=== PATIENT | male | born 1930 | race Caucasian/White ===

== ENCOUNTER 2016-04-26 09:15 | Inpatient (IN) | payer MEDICARE, MEDICAID ==
[2016-04-26] VITALS (27 sets, daily range): BP systolic 124–172; BP diastolic 31–116
[~2016-04-26] VITALS: Ht 165.1 cm; Wt 90.7 kg
[~2016-04-26 09:15] MED LIST: AMLO10TA80 PO; ASPI-1035 PO; FURO-151 PO; HYDR-523 PO; INSU3INS6 SUBCUT; LISI-604 PO; TAMS0.4C31 PO; VALS1TAB34 PO
[2016-04-26] MEDS ORDERED: INSASP SQ (12:09)
[2016-04-26] MEDS ORDERED: ATEN-42 PO (12:09)
[2016-04-26] MEDS ORDERED: LACT10SO6 PO (12:09)
[2016-04-26] MEDS ORDERED: HYDR12.529 PO (12:09)
[2016-04-26] MEDS ORDERED: LEVVL SQ (12:09)
[2016-04-26] MEDS ORDERED: FERR-63 PO (12:09)
[2016-04-26] MEDS ORDERED: CLOP75TA33 PO (12:09)
[2016-04-26] MEDS ORDERED: LOSA100T14 PO (12:09)
[2016-04-26] MEDS ORDERED: ESOM40CA PO (12:09)
[2016-04-26] MEDS ORDERED: HYDR-3933 PO (12:09)
[2016-04-26] MEDS ORDERED: ATOR40TA70 PO (12:09)
[2016-04-26] MEDS ORDERED: DOCU-150 PO (12:09)
[2016-04-26] MEDS ORDERED: IODIXANOL 320MG/ML 100 ML BOTTLE IV ONE (12:15)
[2016-04-26] MEDS ORDERED: LIDOCAINE HCL 1% 20ML VIAL (Pyxis) INJ ONE (12:16)
[2016-04-26] MEDS ORDERED: MIDAZOLAM HCL 2 MG/2 ML VIAL ONE (12:39)
[2016-04-26] MEDS ORDERED: FENTANYL CITRATE/PF 50MCG/ML 2ML VIAL ONE (12:40)
[2016-04-26] MEDS ORDERED: HEPARIN SODIUM 1,000 UNIT/1ML VIAL IV ONE ×2 (12:48→13:05)
[2016-04-26] MEDS ORDERED: HYDROMORPHONE HCL/PF 2MG/ML (OR) ONE (12:58)
[2016-04-26] MEDS ORDERED: IOVERSOL 240MG/ML 100ML BOTTLE IV ONE (13:06)
[2016-04-26] MEDS ORDERED: HYDRALAZINE 20MG/ML VIAL ONE (13:19)
[2016-04-26] MEDS ORDERED: MORPHINE SULFATE 2 MG/ML CPJ (NOT FOR IM USE) IV PRN (14:45)
[2016-04-26] MEDS ORDERED: ATROPINE SULFATE 1MG/10ML SYR IV PRN (14:45)
[2016-04-26] MEDS ORDERED: SODIUM CHLORIDE 0.45% 1,000 ML IV ONE (14:45)
[2016-04-26] MEDS ORDERED: ACETAMINOPHEN 325MG TABLET PO PRN (14:45)
[2016-04-26] MEDS ORDERED: ONDANSETRON HCL 4MG/2ML VIAL IV PRN (14:45)
[2016-04-26] MEDS ORDERED: CLOPIDOGREL 75MG TABLET ONE (14:48)
[2016-04-26] MEDS ORDERED: DEXTROSE 50% WATER 50ML SYRINGE IV PRN (15:00)
[2016-04-26] MEDS ORDERED: CLOPIDOGREL 75MG TABLET PO NR (16:00)
[2016-04-26] MEDS: LOSARTAN POTASSIUM 50 MG TABLET PO SCH (16:13)
[2016-04-26] MEDS: AMLODIPINE 5MG TABLET PO SCH (16:13)
[2016-04-26] MEDS: BLOOD SUGAR DIAGNOSTIC STRIP TEST SCH ×2 (16:41→21:04)
[2016-04-26] MEDS: INSULIN LISPRO 100 UNITS/ML SUBCUT SCH ×2 (16:59→21:10)
[2016-04-26] MEDS ORDERED: PNEUMOCOCCAL 23-VAL P-SAC VAC 0.5 ML IM ONE (19:30)
[2016-04-26] MEDS ORDERED: MAGNESIUM HYDROXIDE 400MG/5ML 30ML UDC PO PRN (22:00)
[2016-04-26] MEDS ORDERED: ZOLPIDEM TARTRATE 5MG TABLET PO PRN (22:00)
[2016-04-26] MEDS ORDERED: HYDROCODONE/ACETAMINOPHEN 5/325MG TABLET PO PRN (22:00)
[2016-04-26] MEDS ORDERED: MAGNESIUM/ALUMINUM HYDROXIDE/SIMETHICONE 30ML UDC PO PRN (22:00)
[2016-04-26] MEDS: INSULIN DETEMIR UD 100 UNITS/ML SYR SUBCUT SCH (23:00)
[2016-04-27] VITALS (10 sets, daily range): BP systolic 106–156; BP diastolic 57–74
[2016-04-27] MEDS: INSULIN DETEMIR UD 100 UNITS/ML SYR SUBCUT SCH (01:18)
[2016-04-27] MEDS: BLOOD SUGAR DIAGNOSTIC STRIP TEST SCH ×2 (06:32→11:27)
[2016-04-27 07:31] LABS: BASOPHILS % 0.2 % (0.0-2.0); HEMOGLOBIN. 10.8 g/dL (14.0-18.0); MEAN CORPUSCULAR HEMOGLOBIN 29.7 pg (28.0-32.0); MEAN CORPUSCULAR HGB CONC 32.9 g/dL (31.0-37.0); MEAN CORPUSCULAR VOLUME 90.3 fL (80.0-94.0); MEAN PLATELET VOLUME 8.7 fl (7.4-10.4); MONOCYTES % 5.2 % (2.0-8.0); NEUTROPHILS % 76.6 % (40.0-76.0); PLATELET 306 x1000/uL (130-400); RED BLOOD CELL COUNT 3.66 mill/uL (4.7-6.1); RED CELL DISTRIBUTION WIDTH 13.7 % (11.6-14.6)
[2016-04-27 07:42] LABS: ANION GAP 12; CALCIUM 8.3 mg/dL (8.5-10.1); CARBON DIOXIDE 25 mEq/L (21-32); CHLORIDE 105 mEq/L (98-107); INDEX HEMOLYSI 1 (1-3); INDEX ICTERIC 1 (1-4); INDEX LIPEMIC 1 (1-3); UREA NITROGEN BLOOD 28 mg/dL (7-21); eGFR > 60 mL/min (>60)
[2016-04-27] MEDS: FERROUS SULFATE 325MG TABLET PO SCH ×2 (08:48→11:32)
[2016-04-27] MEDS: AMLODIPINE 5MG TABLET PO SCH (08:49)
[2016-04-27] MEDS: LOSARTAN POTASSIUM 50 MG TABLET PO SCH (08:49)
[2016-04-27] MEDS: INSULIN LISPRO 100 UNITS/ML SUBCUT SCH ×2 (08:54→11:34)
[2016-04-27] MEDS ORDERED: CLOPIDOGREL 75MG TABLET PO SCH (09:00)
[2016-04-27] MEDS ORDERED: ASPIRIN 325MG TABLET PO SCH (09:00)
[2016-04-27] MEDS ORDERED: ATENOLOL 25MG TABLET PO SCH (09:00)
[2016-04-27] MEDS ORDERED: TAMSULOSIN HCL 0.4MG SR CAPSULE PO SCH (09:00)
== END 2016-04-27 14:40 | disposition home health service (06) | DRG 253 ==
LOC: CCL 09:15 → 3WST 09:16
PROVIDERS: ADMIT Specialist; ATTEND Specialist
PROC: 047K3EZ Dilation of Right Femoral Artery with Two Intraluminal Devices, Percutaneous Approach (ICD-10-PCS; principal; 2016-04-26)
PROC: B41F1ZZ Fluoroscopy of Right Lower Extremity Arteries using Low Osmolar Contrast (ICD-10-PCS; 2016-04-26)
PROC: 047K34Z Dilation of Right Femoral Artery with Drug-eluting Intraluminal Device, Percutaneous Approach (ICD-10-PCS; 2016-04-26)
DX: E11.52 Type 2 diabetes mellitus with diabetic peripheral angiopathy with gangrene (principal); E11.621 Type 2 diabetes mellitus with foot ulcer; E78.00 Pure hypercholesterolemia, unspecified; I10 Essential (primary) hypertension; L97.513 Non-pressure chronic ulcer of other part of right foot with necrosis of muscle; I25.10 Atherosclerotic heart disease of native coronary artery without angina pectoris; Z83.3 Family history of diabetes mellitus; Z85.51 Personal history of malignant neoplasm of bladder; Z86.73 Personal history of transient ischemic attack (TIA), and cerebral infarction without residual deficits; Z89.421 Acquired absence of other right toe(s); I25.2 Old myocardial infarction
CPT/HCPCS: 36415; 37226; 75710; 80048; 82962; 85025; 85347; 85730; 90732; C1725; C1726; C1769; C1874; C1887; C1893; C1894; J0360; J0461; J1170; J1644; J1815; J2250; J2270; J3010; J3490; Q9967

== ENCOUNTER 2016-05-06 15:29 | Inpatient (IN) | payer MEDICARE, MEDICAID ==
[~2016-05-06] VITALS: Ht 165.1 cm; Wt 64.9 kg
[~2016-05-06 15:29] MED LIST changes: -AMLO10TA80 PO; +ATEN-42 PO; +ATOR40TA70 PO; +CLOP75TA33 PO; +DOCU-150 PO; +ESOM40CA PO; +FERR-63 PO; -FURO-151 PO; +HYDR-3933 PO; -HYDR-523 PO; +HYDR12.529 PO; +INSASP SQ; -INSU3INS6 SUBCUT; +LACT10SO6 PO; +LEVVL SQ; -LISI-604 PO; +LOSA100T14 PO; -TAMS0.4C31 PO; -VALS1TAB34 PO
[2016-05-06 16:42] LABS: CHLORIDE 107 mEq/L (98-107); INDEX HEMOLYSI 4 (1-3); INDEX ICTERIC 1 (1-4); INDEX LIPEMIC 1 (1-3)
[2016-05-06 16:44] LABS: INR 1.1; PARTIAL THROMBOPLASTIN TIME 28.7 sec (24.0-34.0); PROTHROMBIN TIME 11.4 sec
[2016-05-06 16:46] LABS: ALBUMIN 2.3 g/dL (3.4-5.0); ANION GAP 13; CALCIUM 8.3 mg/dL (8.5-10.1); CARBON DIOXIDE 23 mEq/L (21-32); UREA NITROGEN BLOOD 33 mg/dL (7-21)
[2016-05-06 16:50] LABS: ALANINE AMINOTRANSFERASE 14 IU/L (13-61); BASOPHILS % 0.5 % (0.0-2.0); EOSINOPHILS % 1.9 % (0.0-5.0); HEMATOCRIT. 32.6 % (42.0-52.0); HEMOGLOBIN. 10.2 g/dL (14.0-18.0); LYMPHOCYTES % 22.9 % (20.0-50.0); MEAN CORPUSCULAR HEMOGLOBIN 29.9 pg (28.0-32.0); MEAN CORPUSCULAR HGB CONC 31.3 g/dL (31.0-37.0); MEAN CORPUSCULAR VOLUME 95.3 fL (80.0-94.0); MONOCYTES % 5.5 % (2.0-8.0); NEUTROPHILS % 69.2 % (40.0-76.0); PLATELET 358 x1000/uL (130-400); RED BLOOD CELL COUNT 3.42 mill/uL (4.7-6.1); RED CELL DISTRIBUTION WIDTH 14.7 % (11.6-14.6); WHITE BLOOD COUNT 8.5 x1000/uL (4.5-11.0); eGFR > 60 mL/min (>60)
[2016-05-06] MEDS ORDERED: IPRATROPIUM/ALBUTEROL 0.5-3(2.5)MG/3ML NEB INH PRN (20:30)
[2016-05-06] MEDS ORDERED: ONDANSETRON HCL 4MG/2ML VIAL IV PRN (20:30)
[2016-05-06] MEDS ORDERED: GUAIFENESIN 200MG/10ML SUGAR FREE UDC PO PRN (20:30)
[2016-05-06] MEDS ORDERED: DIPHENHYDRAMINE 50MG/ML VIAL IV PRN (20:30)
[2016-05-06] MEDS ORDERED: MAGNESIUM/ALUMINUM HYDROXIDE/SIMETHICONE 30ML UDC PO PRN (20:30)
[2016-05-06] MEDS ORDERED: ACETAMINOPHEN 325MG TABLET PO PRN (20:30)
[2016-05-06] MEDS ORDERED: CLONIDINE 0.1MG TABLET PO PRN (20:30)
[2016-05-06] MEDS ORDERED: ZOLPIDEM TARTRATE 5MG TABLET PO PRN (20:45)
[2016-05-06] MEDS ORDERED: DEXTROSE 50% WATER 50ML SYRINGE IV PRN (20:45)
[2016-05-06] MEDS ORDERED: MAGNESIUM HYDROXIDE 400MG/5ML 30ML UDC PO PRN (20:45)
[2016-05-06] MEDS ORDERED: CLONIDINE 0.2MG TABLET PO ONE (22:00)
[2016-05-06] MEDS ORDERED: SODIUM POLYSTYRENE SULFONATE 15 G/60 ML BOT PO NR (22:52)
[2016-05-06 23:00] VITALS: BP 186/68
[2016-05-06] MEDS: LOSARTAN POTASSIUM 50 MG TABLET PO SCH (23:20)
[2016-05-06] MEDS: BLOOD SUGAR DIAGNOSTIC STRIP TEST SCH (23:20)
[2016-05-06] MEDS: DEXT 5%/0.45% NACL 1000ML 1,000 ML IV SCH (23:21)
[2016-05-06] MEDS ORDERED: INSULIN DETEMIR UD 100 UNITS/ML SYR SUBCUT SCH (23:30)
[2016-05-06] MEDS: INSULIN LISPRO 100 UNITS/ML SUBCUT SCH (23:37)
[2016-05-07] VITALS (7 sets, daily range): BP systolic 115–186; BP diastolic 60–81
[2016-05-07] MEDS ORDERED: CLONIDINE 0.1MG TABLET PO PRN (00:30)
[2016-05-07] MEDS ORDERED: SODIUM CHLORIDE 0.45% 1,000 ML IV ONE (06:00)
[2016-05-07] MEDS: BLOOD SUGAR DIAGNOSTIC STRIP TEST SCH ×4 (06:51→20:32)
[2016-05-07 07:15] LABS: ANION GAP 10; CALCIUM 8.1 mg/dL (8.5-10.1); CARBON DIOXIDE 29 mEq/L (21-32); CHLORIDE 108 mEq/L (98-107); INDEX HEMOLYSI 1 (1-3); INDEX ICTERIC 1 (1-4); INDEX LIPEMIC 1 (1-3); UREA NITROGEN BLOOD 31 mg/dL (7-21); eGFR > 60 mL/min (>60)
[2016-05-07] MEDS: INSULIN LISPRO 100 UNITS/ML SUBCUT SCH ×4 (08:10→20:37)
[2016-05-07] MEDS ORDERED: THROMBIN (BOVINE) 5000 UNITS/VIAL TOP NR (08:30)
[2016-05-07] MEDS: AMLODIPINE 5MG TABLET PO SCH ×2 (12:02→20:27)
[2016-05-07] MEDS: TAMSULOSIN HCL 0.4MG SR CAPSULE PO SCH (12:02)
[2016-05-07] MEDS: LOSARTAN POTASSIUM 50 MG TABLET PO SCH (12:03)
[2016-05-07] MEDS: DOCUSATE SODIUM 100MG CAPSULE PO SCH ×2 (12:03→17:25)
[2016-05-07] MEDS: FERROUS SULFATE 325MG TABLET PO SCH ×3 (12:03→17:25)
[2016-05-07] MEDS: OMEPRAZOLE 20MG CAPSULE EXTENDED RELEASE PO SCH (12:03)
[2016-05-07] MEDS: ATENOLOL 25MG TABLET PO SCH (12:08)
[2016-05-07] MEDS: HYDROCODONE/ACETAMINOPHEN 10/325MG TABLET PO PRN (14:40)
[2016-05-07] MEDS: DEXT 5%/0.45% NACL 1000ML 1,000 ML IV SCH (20:27)
[2016-05-07] MEDS ORDERED: INSULIN DETEMIR UD 100 UNITS/ML SYR SUBCUT SCH (23:09)
[2016-05-08] VITALS: BP 122/56
[2016-05-08] MEDS: HYDROCODONE/ACETAMINOPHEN 10/325MG TABLET PO PRN (00:05)
[2016-05-08] MEDS: LOSARTAN POTASSIUM 50 MG TABLET PO SCH ×2 (00:06→08:54)
[2016-05-08 04:00] VITALS: BP 131/58
[2016-05-08 06:01] LABS: BASOPHILS % 0.6 % (0.0-2.0); EOSINOPHILS % 2.5 % (0.0-5.0); HEMATOCRIT. 27.4 % (42.0-52.0); LYMPHOCYTES % 27.8 % (20.0-50.0); MEAN CORPUSCULAR HEMOGLOBIN 30.2 pg (28.0-32.0); MEAN CORPUSCULAR HGB CONC 32.9 g/dL (31.0-37.0); MEAN CORPUSCULAR VOLUME 91.8 fL (80.0-94.0); MEAN PLATELET VOLUME 8.2 fl (7.4-10.4); MONOCYTES % 5.8 % (2.0-8.0); NEUTROPHILS % 63.3 % (40.0-76.0); PLATELET 331 x1000/uL (130-400); RED BLOOD CELL COUNT 2.98 mill/uL (4.7-6.1); RED CELL DISTRIBUTION WIDTH 14.4 % (11.6-14.6); WHITE BLOOD COUNT 8.1 x1000/uL (4.5-11.0)
[2016-05-08] MEDS: BLOOD SUGAR DIAGNOSTIC STRIP TEST SCH ×3 (06:08→17:10)
[2016-05-08 06:57] LABS: ANION GAP 10; CALCIUM 7.8 mg/dL (8.5-10.1); CARBON DIOXIDE 27 mEq/L (21-32); CHLORIDE 106 mEq/L (98-107); INDEX HEMOLYSI 1 (1-3); INDEX ICTERIC 1 (1-4); INDEX LIPEMIC 1 (1-3); UREA NITROGEN BLOOD 30 mg/dL (7-21); eGFR > 60 mL/min (>60)
[2016-05-08 08:00] VITALS: BP 124/76
[2016-05-08] MEDS: DOCUSATE SODIUM 100MG CAPSULE PO SCH ×2 (08:53→16:42)
[2016-05-08] MEDS: ATENOLOL 25MG TABLET PO SCH (08:53)
[2016-05-08] MEDS: AMLODIPINE 5MG TABLET PO SCH (08:54)
[2016-05-08] MEDS: TAMSULOSIN HCL 0.4MG SR CAPSULE PO SCH (08:54)
[2016-05-08] MEDS: OMEPRAZOLE 20MG CAPSULE EXTENDED RELEASE PO SCH (08:54)
[2016-05-08] MEDS: FERROUS SULFATE 325MG TABLET PO SCH ×3 (08:54→16:43)
[2016-05-08] MEDS: INSULIN LISPRO 100 UNITS/ML SUBCUT SCH ×2 (09:03→13:55)
[2016-05-08 12:11] VITALS: BP 131/62
[2016-05-08] MEDS ORDERED: POTASSIUM CHLORIDE 20MEQ TABLET SR PO SCH (13:15)
[2016-05-08] MEDS ORDERED: ASPIRIN 81MG EC TABLET PO NR (15:30)
[2016-05-08] MEDS ORDERED: CLOPIDOGREL 75MG TABLET PO NR (15:30)
[2016-05-08 16:00] VITALS: BP 148/67
[2016-05-08 16:21] VITALS: BP 131/62
[2016-05-09] MEDS ORDERED: FAMOTIDINE 20MG TABLET PO SCH (09:00)
== END 2016-05-08 17:50 | disposition home or self-care (01) | DRG 299 ==
LOC: ER 15:36 → 7WST 18:34
PROVIDERS: ADMIT Internal Medicine; ATTEND Internal Medicine
PROC: 3E053GC Introduction of Other Therapeutic Substance into Peripheral Artery, Percutaneous Approach (ICD-10-PCS; principal; 2016-05-07)
DX: I72.4 Aneurysm of artery of lower extremity (principal); E43 Unspecified severe protein-calorie malnutrition; J90 Pleural effusion, not elsewhere classified; S30.1XXA Contusion of abdominal wall, initial encounter; D64.9 Anemia, unspecified; E11.40 Type 2 diabetes mellitus with diabetic neuropathy, unspecified; E78.00 Pure hypercholesterolemia, unspecified; E87.5 Hyperkalemia; I10 Essential (primary) hypertension; I25.10 Atherosclerotic heart disease of native coronary artery without angina pectoris; E11.51 Type 2 diabetes mellitus with diabetic peripheral angiopathy without gangrene; X58.XXXA Exposure to other specified factors, initial encounter; E78.5 Hyperlipidemia, unspecified; I25.2 Old myocardial infarction; Z82.49 Family history of ischemic heart disease and other diseases of the circulatory system; Z83.3 Family history of diabetes mellitus; Z85.51 Personal history of malignant neoplasm of bladder; Z86.73 Personal history of transient ischemic attack (TIA), and cerebral infarction without residual deficits; Z95.5 Presence of coronary angioplasty implant and graft; Z79.82 Long term (current) use of aspirin; Z95.1 Presence of aortocoronary bypass graft; Z89.411 Acquired absence of right great toe; Z68.23 Body mass index [BMI] 23.0-23.9, adult; Y93.89 Activity, other specified; Y92.89 Other specified places as the place of occurrence of the external cause; Y99.8 Other external cause status
CPT/HCPCS: 36415; 71010; 76857; 76942; 80048; 80053; 82962; 85025; 85610; 85730; 93005; 99285; A6261; J1815; J3490

== ENCOUNTER 2017-02-13 13:34 | Inpatient (IN) | payer MEDICARE, MEDICAID ==
[~2017-02-13] VITALS: Ht 165.1 cm; Wt 79.4 kg
[~2017-02-13 13:34] MED LIST changes: -ASPI-1035 PO; +ASPI-1159 PO
[2017-02-13 15:15] LABS: INR 1.2; PROTHROMBIN TIME 12.2 sec (9.4-11.6)
[2017-02-13 15:17] LABS: BASOPHILS % 0.1 % (0.0-2.0); HEMATOCRIT. 35.5 % (42.0-52.0); HEMOGLOBIN. 11.5 g/dL (14.0-18.0); LYMPHOCYTES % 8.2 % (20.0-50.0); MEAN CORPUSCULAR HEMOGLOBIN 30.7 pg (28.0-32.0); MEAN CORPUSCULAR VOLUME 94.8 fL (80.0-94.0); MEAN PLATELET VOLUME 9.3 fl (7.4-10.4); MONOCYTES % 6.2 % (2.0-8.0); NEUTROPHILS % 85.5 % (40.0-76.0); PLATELET 278 x1000/uL (130-400); RED BLOOD CELL COUNT 3.75 mill/uL (4.7-6.1); RED CELL DISTRIBUTION WIDTH 13.2 % (11.6-14.6)
[2017-02-13 15:19] LABS: CARBON DIOXIDE 26 mEq/L (21-32); CHLORIDE 99 mEq/L (98-107)
[2017-02-13 15:20] LABS: CLARITY URINE CLOUDY (CLEAR); COLOR URINE YELLOW (YELLOW); KETONES URINE NEGATIVE (NEGATIVE); LEUKOCYTE ESTERASE URINE NEGATIVE (NEGATIVE); NITRITE URINE NEGATIVE (NEGATIVE); OCCULT BLOOD URINE NEGATIVE (NEGATIVE); PROTEIN URINE 2+ (NEGATIVE); SPECIFIC GRAVITY URINE 1.022 (1.005-1.030)
[2017-02-13] MEDS ORDERED: OSELTAMIVIR 75MG CAPSULE PO ONE (15:45)
[2017-02-13] MEDS ORDERED: AZITHROMYCIN 500 MG in DEXT 5% WATER 250 ML IV ONE (15:45)
[2017-02-13] MEDS ORDERED: CEFTRIAXONE 1 G PREMIX 50 ML IV ONE (15:45)
[2017-02-13] MEDS ORDERED: SODIUM CHLORIDE 0.9% 1000ML BAG (SEPSIS BOLUS) IV ONE (15:45)
[2017-02-13 18:00] VITALS: BP 135/76
[2017-02-13 18:46] VITALS: BP 135/76
[2017-02-13 20:00] VITALS: BP 147/76
[2017-02-13] MEDS ORDERED: MAGNESIUM/ALUMINUM HYDROXIDE/SIMETHICONE 30ML UDC PO PRN (21:45)
[2017-02-13] MEDS ORDERED: DIPHENHYDRAMINE 50MG/ML VIAL IV PRN (21:45)
[2017-02-13] MEDS ORDERED: ONDANSETRON HCL 4MG/2ML VIAL IV PRN (21:45)
[2017-02-13] MEDS ORDERED: DEXTROSE 50% WATER 50ML SYRINGE IV PRN (21:45)
[2017-02-13] MEDS ORDERED: IPRATROPIUM/ALBUTEROL 0.5-3(2.5)MG/3ML NEB INH PRN (21:45)
[2017-02-13] MEDS ORDERED: ACETAMINOPHEN 325MG TABLET PO PRN (21:45)
[2017-02-13] MEDS ORDERED: METHYLPREDNISOLONE SOD SUCC 40 MG/ML VIAL IV NR (23:00)
[2017-02-13] MEDS: SODIUM CHLORIDE 0.9% 1,000 ML IV SCH (23:33)
[2017-02-14] VITALS: BP 145/44
[2017-02-14] MEDS ORDERED: LEVOFLOXACIN 500MG PREMIX 100 ML IV NR
[2017-02-14] MEDS: PROMETHAZINE/DEXTROMETHORPHAN 6.25-15MG/5ML BOTTLE 120ML PO PRN (00:22)
[2017-02-14] MEDS: INSULIN DETEMIR UD 100 UNITS/ML SYR SUBCUT SCH ×2 (00:27→22:18)
[2017-02-14] MEDS: IPRATROPIUM/ALBUTEROL 0.5-3(2.5)MG/3ML NEB HHN SCH ×5 (00:47→17:32)
[2017-02-14 04:05] VITALS: BP 106/52
[2017-02-14] MEDS: SODIUM CHLORIDE 0.9% INJ 3ML FLUSH IVF SCH ×3 (06:17→22:18)
[2017-02-14] MEDS: OMEPRAZOLE 20MG CAPSULE EXTENDED RELEASE PO SCH ×2 (06:20→17:11)
[2017-02-14] MEDS: BLOOD SUGAR DIAGNOSTIC STRIP TEST SCH ×4 (06:20→21:00)
[2017-02-14 07:58] VITALS: BP 128/62
[2017-02-14] MEDS: GUAIFENESIN 600MG ER TABLET PO SCH ×2 (08:48→22:18)
[2017-02-14] MEDS: INSULIN LISPRO 100 UNITS/ML SUBCUT SCH ×4 (08:48→22:17)
[2017-02-14] MEDS: ATENOLOL 25MG TABLET PO SCH (08:49)
[2017-02-14] MEDS: ASPIRIN 81MG EC TABLET PO SCH (08:50)
[2017-02-14] MEDS: FERROUS SULFATE 325MG TABLET PO SCH (08:50)
[2017-02-14] MEDS: OSELTAMIVIR PHOSPHATE 6 MG/1 ML PO SCH ×2 (08:50→22:18)
[2017-02-14] MEDS: CLOPIDOGREL 75MG TABLET PO SCH (08:50)
[2017-02-14] MEDS: LOSARTAN POTASSIUM 100 MG TABLET PO SCH (08:51)
[2017-02-14 12:08] VITALS: BP 117/57
[2017-02-14 16:11] VITALS: BP 106/47
[2017-02-14] MEDS: SODIUM CHLORIDE 0.9% 1,000 ML IV SCH (17:15)
[2017-02-14 20:00] VITALS: BP 120/61
[2017-02-14] MEDS: IPRATROPIUM/ALBUTEROL 0.5-3(2.5)MG/3ML NEB INH SCH (21:12)
[2017-02-14] MEDS: ATORVASTATIN CALCIUM 40MG TABLET PO SCH (22:19)
[2017-02-15] VITALS: BP 113/58
[2017-02-15] MEDS ORDERED: LEVOFLOXACIN 250MG PREMIX 50 ML IV SCH
[2017-02-15] MEDS: IPRATROPIUM/ALBUTEROL 0.5-3(2.5)MG/3ML NEB HHN SCH ×3 (00:48→20:23)
[2017-02-15 04:00] VITALS: BP 114/63
[2017-02-15] MEDS: IPRATROPIUM/ALBUTEROL 0.5-3(2.5)MG/3ML NEB INH SCH ×4 (04:38→20:17)
[2017-02-15] MEDS: SODIUM CHLORIDE 0.9% INJ 3ML FLUSH IVF SCH ×3 (05:44→21:49)
[2017-02-15] MEDS: SODIUM CHLORIDE 0.9% 1,000 ML IV SCH ×2 (05:44→21:51)
[2017-02-15] MEDS: OMEPRAZOLE 20MG CAPSULE EXTENDED RELEASE PO SCH ×2 (06:00→17:30)
[2017-02-15] MEDS: BLOOD SUGAR DIAGNOSTIC STRIP TEST SCH ×4 (06:50→21:55)
[2017-02-15 07:37] VITALS: BP 137/62
[2017-02-15] MEDS: ATENOLOL 25MG TABLET PO SCH (08:18)
[2017-02-15] MEDS: CLOPIDOGREL 75MG TABLET PO SCH (08:18)
[2017-02-15] MEDS: ASPIRIN 81MG EC TABLET PO SCH (08:19)
[2017-02-15] MEDS: OSELTAMIVIR PHOSPHATE 6 MG/1 ML PO SCH ×3 (08:19→21:52)
[2017-02-15] MEDS: GUAIFENESIN 600MG ER TABLET PO SCH ×3 (08:19→21:51)
[2017-02-15] MEDS: FERROUS SULFATE 325MG TABLET PO SCH (08:19)
[2017-02-15] MEDS: LOSARTAN POTASSIUM 100 MG TABLET PO SCH (08:19)
[2017-02-15] MEDS: INSULIN LISPRO 100 UNITS/ML SUBCUT SCH ×4 (08:20→22:10)
[2017-02-15 12:03] VITALS: BP 126/63
[2017-02-15 15:44] VITALS: BP 123/64
[2017-02-15] MEDS ORDERED: METHYLPREDNISOLONE SOD SUCC 125 MG/2 ML VIAL IV NR (16:30)
[2017-02-15 16:31] LABS: BASOPHILS % 0.2 % (0.0-2.0); EOSINOPHILS % 0.3 % (0.0-5.0); HEMATOCRIT. 32.3 % (42.0-52.0); HEMOGLOBIN. 10.4 g/dL (14.0-18.0); LYMPHOCYTES % 8.7 % (20.0-50.0); MEAN CORPUSCULAR HEMOGLOBIN 30.8 pg (28.0-32.0); MEAN CORPUSCULAR VOLUME 95.6 fL (80.0-94.0); MONOCYTES % 3.4 % (2.0-8.0); NEUTROPHILS % 87.4 % (40.0-76.0); PLATELET 290 x1000/uL (130-400); RED BLOOD CELL COUNT 3.37 mill/uL (4.7-6.1); RED CELL DISTRIBUTION WIDTH 13.6 % (11.6-14.6)
[2017-02-15 16:49] LABS: CARBON DIOXIDE 21 mEq/L (21-32); CHLORIDE 106 mEq/L (98-107); PHOSPHORUS 3.5 mg/dL (2.5-4.9)
[2017-02-15] MEDS ORDERED: VANCOMYCIN 750 MG in DEXT 5% WATER 250 ML IV SCH (17:30)
[2017-02-15 19:28] LABS: BG BASE EXCESS -6.4 mmol/L (-2.0-2.0); BG CARBOXYHEMOGLOBIN 0.4 % (0.5-1.5); BG DEOXYHEMOGLOBIN 6.2 % (0.0-5.0); BG FRACTION INSPIRED OXYGEN 28; BG HCO3 ACT 18.9 mmol/L (22.0-26.0); BG METHEMOGLOBIN 0.4 % (0.0-1.5); BG OXYGEN SATURATION 93.8 % (92.0-98.5); BG PH 7.326 (7.350-7.450); BG PO2 73.2 mmHg (75.0-100.0); BG SAMPLE SITE RIGHT BRACHIAL; BG TOTAL HEMOGLOBIN 13.1 g/dL (12.0-18.0); BG VENT MODE NASAL CANNULA
[2017-02-15 20:00] VITALS: BP 124/52
[2017-02-15] MEDS ORDERED: VANCOMYCIN 1500MG in DEXTROSE 5% WATER 250ML IV NR (20:00)
[2017-02-15] MEDS: PIPERACILLIN/TAZOBACTAM 2.25 G in DEXTROSE 5% WATER 50 ML IV SCH ×2 (21:49→21:55)
[2017-02-15] MEDS: ATORVASTATIN CALCIUM 40MG TABLET PO SCH (21:54)
[2017-02-15] MEDS: INSULIN DETEMIR UD 100 UNITS/ML SYR SUBCUT SCH (22:05)
[2017-02-16] MEDS: IPRATROPIUM/ALBUTEROL 0.5-3(2.5)MG/3ML NEB HHN SCH ×4 (00:45→15:28)
[2017-02-16 02:00] VITALS: BP 117/56
[2017-02-16] MEDS: METHYLPREDNISOLONE SOD SUCC 40 MG/ML VIAL IV SCH ×2 (02:58→12:33)
[2017-02-16 04:00] VITALS: BP 119/61
[2017-02-16] MEDS: IPRATROPIUM/ALBUTEROL 0.5-3(2.5)MG/3ML NEB INH SCH ×5 (04:47→20:48)
[2017-02-16] MEDS: OMEPRAZOLE 20MG CAPSULE EXTENDED RELEASE PO SCH ×2 (06:14→18:37)
[2017-02-16] MEDS: BLOOD SUGAR DIAGNOSTIC STRIP TEST SCH ×4 (06:14→21:00)
[2017-02-16] MEDS: SODIUM CHLORIDE 0.9% INJ 3ML FLUSH IVF SCH ×3 (06:15→22:01)
[2017-02-16] MEDS: PIPERACILLIN/TAZOBACTAM 2.25 G in DEXTROSE 5% WATER 50 ML IV SCH ×3 (06:16→22:08)
[2017-02-16 08:00] VITALS: BP 130/64
[2017-02-16] MEDS: ASPIRIN 81MG EC TABLET PO SCH (09:10)
[2017-02-16] MEDS: FERROUS SULFATE 325MG TABLET PO SCH (09:10)
[2017-02-16] MEDS: CLOPIDOGREL 75MG TABLET PO SCH (09:10)
[2017-02-16] MEDS: LOSARTAN POTASSIUM 100 MG TABLET PO SCH (09:10)
[2017-02-16] MEDS: ATENOLOL 25MG TABLET PO SCH (09:11)
[2017-02-16] MEDS: INSULIN LISPRO 100 UNITS/ML SUBCUT SCH ×4 (09:13→21:00)
[2017-02-16 12:00] VITALS: BP 114/57
[2017-02-16] MEDS: OSELTAMIVIR PHOSPHATE 6 MG/1 ML PO SCH ×2 (12:23→22:25)
[2017-02-16] MEDS: GUAIFENESIN 600MG ER TABLET PO SCH (12:38)
[2017-02-16] MEDS: SODIUM CHLORIDE 0.9% 1,000 ML IV SCH (14:33)
[2017-02-16 16:00] VITALS: BP 119/65
[2017-02-16] MEDS ORDERED: METHYLPREDNISOLONE SOD SUCC 40 MG/ML VIAL IV SCH (20:00)
[2017-02-16 20:42] VITALS: BP 123/65
[2017-02-16] MEDS: ATORVASTATIN CALCIUM 40MG TABLET PO SCH (22:01)
[2017-02-16] MEDS: INSULIN DETEMIR UD 100 UNITS/ML SYR SUBCUT SCH (22:07)
[2017-02-17] MEDS: IPRATROPIUM/ALBUTEROL 0.5-3(2.5)MG/3ML NEB HHN SCH ×4 (00:11→14:51)
[2017-02-17 00:32] VITALS: BP 133/63
[2017-02-17 04:00] VITALS: BP 120/66
[2017-02-17] MEDS: IPRATROPIUM/ALBUTEROL 0.5-3(2.5)MG/3ML NEB INH SCH ×4 (04:20→21:36)
[2017-02-17] MEDS: OMEPRAZOLE 20MG CAPSULE EXTENDED RELEASE PO SCH ×2 (06:30→17:07)
[2017-02-17] MEDS: BLOOD SUGAR DIAGNOSTIC STRIP TEST SCH ×4 (06:31→21:33)
[2017-02-17] MEDS: SODIUM CHLORIDE 0.9% INJ 3ML FLUSH IVF SCH ×3 (06:31→21:43)
[2017-02-17] MEDS: PIPERACILLIN/TAZOBACTAM 2.25 G in DEXTROSE 5% WATER 50 ML IV SCH ×2 (06:44→21:42)
[2017-02-17 08:00] VITALS: BP 142/62
[2017-02-17] MEDS: CLOPIDOGREL 75MG TABLET PO SCH (09:53)
[2017-02-17] MEDS: LOSARTAN POTASSIUM 100 MG TABLET PO SCH (09:54)
[2017-02-17] MEDS: ATENOLOL 25MG TABLET PO SCH (09:54)
[2017-02-17] MEDS: GUAIFENESIN 600MG ER TABLET PO SCH ×2 (09:54→21:42)
[2017-02-17] MEDS: ASPIRIN 81MG EC TABLET PO SCH (09:54)
[2017-02-17] MEDS: PREDNISONE 20MG TABLET PO SCH (09:54)
[2017-02-17] MEDS: FERROUS SULFATE 325MG TABLET PO SCH (09:54)
[2017-02-17] MEDS ORDERED: VANCOMYCIN 1250MG in DEXTROSE 5% WATER 250ML IV NR (10:00)
[2017-02-17] MEDS: INSULIN LISPRO 100 UNITS/ML SUBCUT SCH ×4 (10:00→21:41)
[2017-02-17 11:51] VITALS: BP 131/60
[2017-02-17 16:00] VITALS: BP 123/60
[2017-02-17 20:00] VITALS: BP 138/62
[2017-02-17] MEDS: ATORVASTATIN CALCIUM 40MG TABLET PO SCH (21:42)
[2017-02-17] MEDS: INSULIN DETEMIR UD 100 UNITS/ML SYR SUBCUT SCH (21:42)
[2017-02-17] MEDS: OSELTAMIVIR PHOSPHATE 6 MG/1 ML PO SCH (21:42)
[2017-02-18] VITALS: BP 134/56
[2017-02-18] MEDS: IPRATROPIUM/ALBUTEROL 0.5-3(2.5)MG/3ML NEB HHN SCH (00:19)
[2017-02-18] MEDS: IPRATROPIUM/ALBUTEROL 0.5-3(2.5)MG/3ML NEB INH SCH ×5 (03:43→21:31)
[2017-02-18 04:00] VITALS: BP 136/59
[2017-02-18] MEDS: OMEPRAZOLE 20MG CAPSULE EXTENDED RELEASE PO SCH ×2 (06:27→17:39)
[2017-02-18] MEDS: PIPERACILLIN/TAZOBACTAM 2.25 G in DEXTROSE 5% WATER 50 ML IV SCH ×2 (06:27→14:26)
[2017-02-18] MEDS: SODIUM CHLORIDE 0.9% INJ 3ML FLUSH IVF SCH ×3 (06:27→21:34)
[2017-02-18] MEDS: BLOOD SUGAR DIAGNOSTIC STRIP TEST SCH ×4 (06:30→21:40)
[2017-02-18] MEDS: INSULIN LISPRO 100 UNITS/ML SUBCUT SCH ×4 (07:50→21:34)
[2017-02-18 07:56] VITALS: BP 166/76
[2017-02-18] MEDS: ASPIRIN 81MG EC TABLET PO SCH (09:17)
[2017-02-18] MEDS: GUAIFENESIN 600MG ER TABLET PO SCH ×2 (09:17→20:42)
[2017-02-18] MEDS: FERROUS SULFATE 325MG TABLET PO SCH (09:17)
[2017-02-18] MEDS: LOSARTAN POTASSIUM 100 MG TABLET PO SCH (09:17)
[2017-02-18] MEDS: PREDNISONE 20MG TABLET PO SCH (09:17)
[2017-02-18] MEDS: ATENOLOL 25MG TABLET PO SCH (09:18)
[2017-02-18] MEDS: CLOPIDOGREL 75MG TABLET PO SCH (09:19)
[2017-02-18] MEDS: OSELTAMIVIR PHOSPHATE 6 MG/1 ML PO SCH (10:28)
[2017-02-18 11:52] VITALS: BP 125/68
[2017-02-18] MEDS: PROMETHAZINE/DEXTROMETHORPHAN 6.25-15MG/5ML BOTTLE 120ML PO PRN (12:21)
[2017-02-18 16:27] VITALS: BP 168/61
[2017-02-18 20:00] VITALS: BP 166/71
[2017-02-18] MEDS: ATORVASTATIN CALCIUM 40MG TABLET PO SCH (20:42)
[2017-02-18] MEDS: CLONIDINE 0.1MG TABLET PO PRN (20:43)
[2017-02-18] MEDS ORDERED: OSELTAMIVIR 30MG CAPSULE PO SCH (21:00)
[2017-02-18] MEDS: PIPERACILLIN/TAZ 2.25G PREMIX 50 ML IV SCH (21:33)
[2017-02-18] MEDS: INSULIN DETEMIR UD 100 UNITS/ML SYR SUBCUT SCH (21:35)
[2017-02-19] VITALS (8 sets, daily range): BP systolic 119–153; BP diastolic 57–76
[2017-02-19] MEDS: IPRATROPIUM/ALBUTEROL 0.5-3(2.5)MG/3ML NEB INH SCH ×6 (01:13→20:21)
[2017-02-19] MEDS: PIPERACILLIN/TAZ 2.25G PREMIX 50 ML IV SCH ×3 (05:47→21:54)
[2017-02-19] MEDS: SODIUM CHLORIDE 0.9% INJ 3ML FLUSH IVF SCH ×3 (05:48→21:55)
[2017-02-19] MEDS: OMEPRAZOLE 20MG CAPSULE EXTENDED RELEASE PO SCH ×2 (06:46→17:58)
[2017-02-19] MEDS: BLOOD SUGAR DIAGNOSTIC STRIP TEST SCH ×4 (06:46→21:57)
[2017-02-19 07:20] LABS: EOSINOPHILS % 0.1 % (0.0-5.0); HEMATOCRIT. 33.6 % (42.0-52.0); HEMOGLOBIN. 10.8 g/dL (14.0-18.0); LYMPHOCYTES % 9.3 % (20.0-50.0); MEAN CORPUSCULAR HEMOGLOBIN 30.6 pg (28.0-32.0); MEAN CORPUSCULAR VOLUME 95.4 fL (80.0-94.0); MEAN PLATELET VOLUME 8.8 fl (7.4-10.4); MONOCYTES % 3.3 % (2.0-8.0); NEUTROPHILS % 87.3 % (40.0-76.0); PLATELET 334 x1000/uL (130-400); RED BLOOD CELL COUNT 3.52 mill/uL (4.7-6.1); RED CELL DISTRIBUTION WIDTH 13.6 % (11.6-14.6)
[2017-02-19] MEDS: CLOPIDOGREL 75MG TABLET PO SCH (08:57)
[2017-02-19] MEDS: LOSARTAN POTASSIUM 100 MG TABLET PO SCH (08:58)
[2017-02-19] MEDS: GUAIFENESIN 600MG ER TABLET PO SCH ×2 (08:58→21:54)
[2017-02-19] MEDS: ASPIRIN 81MG EC TABLET PO SCH (08:58)
[2017-02-19] MEDS: PREDNISONE 20MG TABLET PO SCH (08:58)
[2017-02-19] MEDS: FERROUS SULFATE 325MG TABLET PO SCH (08:59)
[2017-02-19] MEDS: ATENOLOL 25MG TABLET PO SCH (09:01)
[2017-02-19] MEDS: INSULIN LISPRO 100 UNITS/ML SUBCUT SCH ×4 (09:03→22:01)
[2017-02-19] MEDS: VANCOMYCIN 1 G PREMIX 200 ML IV SCH (12:07)
[2017-02-19] MEDS: ATORVASTATIN CALCIUM 40MG TABLET PO SCH (21:54)
[2017-02-19] MEDS: INSULIN DETEMIR UD 100 UNITS/ML SYR SUBCUT SCH (21:59)
[2017-02-20] MEDS: IPRATROPIUM/ALBUTEROL 0.5-3(2.5)MG/3ML NEB INH SCH ×6 (00:18→21:48)
[2017-02-20] MEDS: PIPERACILLIN/TAZ 2.25G PREMIX 50 ML IV SCH ×4 (02:33→21:23)
[2017-02-20 04:00] VITALS: BP 149/71
[2017-02-20] MEDS: BLOOD SUGAR DIAGNOSTIC STRIP TEST SCH ×4 (06:41→20:59)
[2017-02-20] MEDS: SODIUM CHLORIDE 0.9% INJ 3ML FLUSH IVF SCH ×3 (06:41→22:56)
[2017-02-20 08:00] VITALS: BP 159/73
[2017-02-20] MEDS: INSULIN LISPRO 100 UNITS/ML SUBCUT SCH ×4 (08:03→21:25)
[2017-02-20] MEDS: FERROUS SULFATE 325MG TABLET PO SCH (08:46)
[2017-02-20] MEDS: ASPIRIN 81MG EC TABLET PO SCH (08:46)
[2017-02-20] MEDS: CLOPIDOGREL 75MG TABLET PO SCH (08:47)
[2017-02-20] MEDS: LOSARTAN POTASSIUM 100 MG TABLET PO SCH (08:47)
[2017-02-20] MEDS: ATENOLOL 25MG TABLET PO SCH (08:47)
[2017-02-20] MEDS: GUAIFENESIN 600MG ER TABLET PO SCH ×2 (08:47→21:24)
[2017-02-20] MEDS: PREDNISONE 20MG TABLET PO SCH (08:47)
[2017-02-20] MEDS: FAMOTIDINE 20MG TABLET PO SCH (08:47)
[2017-02-20 12:00] VITALS: BP 145/68
[2017-02-20 16:00] VITALS: BP 168/75
[2017-02-20 20:00] VITALS: BP 170/77
[2017-02-20] MEDS: ATORVASTATIN CALCIUM 40MG TABLET PO SCH (21:23)
[2017-02-20] MEDS: INSULIN DETEMIR UD 100 UNITS/ML SYR SUBCUT SCH (22:57)
[2017-02-20] MEDS: VANCOMYCIN 1 G PREMIX 200 ML IV SCH (22:58)
[2017-02-21] VITALS (8 sets, daily range): BP systolic 130–191; BP diastolic 54–97
[2017-02-21] MEDS: IPRATROPIUM/ALBUTEROL 0.5-3(2.5)MG/3ML NEB INH SCH ×5 (01:10→16:35)
[2017-02-21] MEDS: PIPERACILLIN/TAZ 2.25G PREMIX 50 ML IV SCH ×3 (03:05→15:29)
[2017-02-21] MEDS: SODIUM CHLORIDE 0.9% INJ 3ML FLUSH IVF SCH ×2 (06:26→15:18)
[2017-02-21] MEDS: BLOOD SUGAR DIAGNOSTIC STRIP TEST SCH ×3 (06:26→17:04)
[2017-02-21] MEDS: INSULIN LISPRO 100 UNITS/ML SUBCUT SCH ×3 (09:19→17:50)
[2017-02-21] MEDS: PREDNISONE 20MG TABLET PO SCH (09:29)
[2017-02-21] MEDS: CLOPIDOGREL 75MG TABLET PO SCH (09:29)
[2017-02-21] MEDS: ASPIRIN 81MG EC TABLET PO SCH (09:29)
[2017-02-21] MEDS: FAMOTIDINE 20MG TABLET PO SCH (09:29)
[2017-02-21] MEDS: FERROUS SULFATE 325MG TABLET PO SCH (09:29)
[2017-02-21] MEDS: LOSARTAN POTASSIUM 100 MG TABLET PO SCH (09:29)
[2017-02-21] MEDS: CLONIDINE 0.1MG TABLET PO PRN (09:33)
[2017-02-21] MEDS ORDERED: ATENOLOL 50 MG TABLET PO SCH (10:00)
[2017-02-21] MEDS: GUAIFENESIN 600MG ER TABLET PO SCH (10:02)
== END 2017-02-21 20:25 | disposition home health service (06) | DRG 871 ==
LOC: ER 14:58 → 6WST 16:03 → ENRESERV 16:19
PROVIDERS: ADMIT Internal Medicine; ATTEND Internal Medicine
DX: A41.9 Sepsis, unspecified organism (principal); E43 Unspecified severe protein-calorie malnutrition; N17.9 Acute kidney failure, unspecified; J09.X1 Influenza due to identified novel influenza A virus with pneumonia; J18.9 Pneumonia, unspecified organism; E11.40 Type 2 diabetes mellitus with diabetic neuropathy, unspecified; E11.21 Type 2 diabetes mellitus with diabetic nephropathy; E11.51 Type 2 diabetes mellitus with diabetic peripheral angiopathy without gangrene; E87.1 Hypo-osmolality and hyponatremia; E86.9 Volume depletion, unspecified; E78.5 Hyperlipidemia, unspecified; J98.01 Acute bronchospasm; I25.10 Atherosclerotic heart disease of native coronary artery without angina pectoris; N18.9 Chronic kidney disease, unspecified; I12.9 Hypertensive chronic kidney disease with stage 1 through stage 4 chronic kidney disease, or unspecified chronic kidney disease; E11.22 Type 2 diabetes mellitus with diabetic chronic kidney disease; E78.00 Pure hypercholesterolemia, unspecified; Z95.1 Presence of aortocoronary bypass graft; I25.2 Old myocardial infarction; Z89.411 Acquired absence of right great toe; Z68.29 Body mass index [BMI] 29.0-29.9, adult; Z79.899 Other long term (current) drug therapy; Z79.02 Long term (current) use of antithrombotics/antiplatelets; Z85.51 Personal history of malignant neoplasm of bladder; Z86.73 Personal history of transient ischemic attack (TIA), and cerebral infarction without residual deficits; Z87.891 Personal history of nicotine dependence; Z87.11 Personal history of peptic ulcer disease; Z83.3 Family history of diabetes mellitus
CPT/HCPCS: 36415; 36600; 71045; 80048; 80053; 80202; 81001; 82375; 82805; 82962; 83605; 84100; 85025; 85610; 87040; 87804; 93005; 94640; 94664; 96365; 96368; 97116; 97162; 97530; 99291; C1893; J0456; J0696; J1200; J1815; J1956; J2543; J2920; J2930; J3370; J7030; J7040; J7050; J7060; J7512; J7620

== ENCOUNTER 2017-02-27 22:00 | Inpatient (IN) | payer MEDICARE, MEDICAID ==
[~2017-02-27] VITALS: Ht 154.9 cm; Wt 59.9 kg
[2017-02-27 22:10] VITALS: BP 127/57
[2017-02-27] MEDS ORDERED: TAMSULOSIN HCL 0.4MG SR CAPSULE PO NR (22:45)
[2017-02-27] MEDS ORDERED: MAGNESIUM/ALUMINUM HYDROXIDE/SIMETHICONE 30ML UDC PO PRN (22:45)
[2017-02-27] MEDS ORDERED: TEMAZEPAM 15MG CAPSULE PO PRN (22:45)
[2017-02-27] MEDS ORDERED: CLONIDINE 0.1MG TABLET PO PRN (22:45)
[2017-02-27] MEDS ORDERED: GUAIFENESIN 200MG/10ML SUGAR FREE UDC PO PRN (22:45)
[2017-02-27] MEDS ORDERED: IPRATROPIUM/ALBUTEROL 0.5-3(2.5)MG/3ML NEB HHN PRN (22:45)
[2017-02-27] MEDS ORDERED: MORPHINE SULFATE 2 MG/ML CPJ (NOT FOR IM USE) IV PRN (22:45)
[2017-02-27] MEDS ORDERED: ONDANSETRON HCL 4MG/2ML VIAL IV PRN (22:45)
[2017-02-27] MEDS ORDERED: DEXTROSE 50% WATER 50ML SYRINGE IV PRN (22:45)
[2017-02-27] MEDS ORDERED: MAGNESIUM HYDROXIDE 400MG/5ML 30ML UDC PO PRN (22:45)
[2017-02-27] MEDS ORDERED: DIPHENHYDRAMINE 25MG CAPSULE PO PRN (22:45)
[2017-02-27] MEDS ORDERED: PROMETHAZINE/DEXTROMETHORPHAN 6.25-15MG/5ML BOTTLE 120ML PO PRN (22:45)
[2017-02-28] MEDS ORDERED: INSULIN GLARGINE UD 100 UNITS/ML SYR SUBCUT NR
[2017-02-28] MEDS: IPRATROPIUM/ALBUTEROL 0.5-3(2.5)MG/3ML NEB HHN SCH ×4 (00:57→19:43)
[2017-02-28] MEDS: HYDROCODONE/ACETAMINOPHEN 5/325MG TABLET PO PRN ×3 (02:50→14:55)
[2017-02-28] MEDS: SODIUM CHLORIDE 0.9% INJ 3ML FLUSH IVF SCH ×3 (05:43→14:55)
[2017-02-28] MEDS: AMLODIPINE 2.5MG TABLET PO SCH ×2 (05:43→17:25)
[2017-02-28] MEDS: BLOOD SUGAR DIAGNOSTIC STRIP TEST SCH ×4 (05:46→21:07)
[2017-02-28 05:52] LABS: CLARITY URINE CLEAR (CLEAR); COLOR URINE YELLOW (YELLOW); KETONES URINE NEGATIVE (NEGATIVE); LEUKOCYTE ESTERASE URINE TRACE (NEGATIVE); NITRITE URINE NEGATIVE (NEGATIVE); OCCULT BLOOD URINE NEGATIVE (NEGATIVE); PROTEIN URINE TRACE (NEGATIVE); SPECIFIC GRAVITY URINE 1.022 (1.005-1.030); UROBILINOGEN URINE 0.2 E.U./dL (0.2-1.0)
[2017-02-28] MEDS: INSULIN LISPRO 100 UNITS/ML SUBCUT SCH ×4 (06:42→21:00)
[2017-02-28 06:46] LABS: HEMATOCRIT 27.7 % (42.0-52.0); HEMOGLOBIN 9.2 g/dL (14.0-18.0); MEAN CORPUSCULAR HEMOGLOBIN 31.5 pg (28.0-32.0); MEAN CORPUSCULAR VOLUME 95.5 fL (80.0-94.0); PLATELET 252 x1000/uL (130-400); RED CELL DISTRIBUTION WIDTH 13.7 % (11.6-14.6)
[2017-02-28 07:43] LABS: CARBON DIOXIDE 22 mEq/L (21-32); CHLORIDE 110 mEq/L (98-107)
[2017-02-28 08:00] VITALS: BP 133/59
[2017-02-28] MEDS: FAMOTIDINE 20MG TABLET PO SCH ×2 (08:57→21:07)
[2017-02-28] MEDS: GUAIFENESIN 600MG ER TABLET PO SCH ×2 (08:57→21:07)
[2017-02-28] MEDS: POLYETHYLENE GLYCOL 3350 (17GM) 1 DOSE PACK PO SCH (08:57)
[2017-02-28] MEDS: LOSARTAN POTASSIUM 100 MG TABLET PO SCH (08:57)
[2017-02-28] MEDS: FERROUS SULFATE 325MG TABLET PO SCH (08:58)
[2017-02-28] MEDS: ASPIRIN 81MG EC TABLET PO SCH (08:58)
[2017-02-28] MEDS: DOCUSATE SODIUM 250MG CAPSULE PO SCH ×2 (08:58→17:25)
[2017-02-28] MEDS: CLOPIDOGREL 75MG TABLET PO SCH (08:58)
[2017-02-28] MEDS: TAMSULOSIN HCL 0.4MG SR CAPSULE PO SCH (08:58)
[2017-02-28] MEDS: ATENOLOL 25MG TABLET PO SCH (08:58)
[2017-02-28] MEDS ORDERED: DOCUSATE SODIUM SUGAR FREE 100MG/10ML UDC NG SCH (09:00)
[2017-02-28] MEDS ORDERED: INSULIN LISPRO 100 UNITS/ML SUBCUT SCH (09:00)
[2017-02-28 20:00] VITALS: BP 137/60
[2017-02-28] MEDS: ATORVASTATIN CALCIUM 40MG TABLET PO SCH (21:07)
[2017-02-28] MEDS: LACTULOSE 20G/30ML UDC PO SCH (21:07)
[2017-02-28] MEDS: INSULIN GLARGINE UD 100 UNITS/ML SYR SUBCUT SCH (22:00)
[2017-03-01] MEDS: IPRATROPIUM/ALBUTEROL 0.5-3(2.5)MG/3ML NEB HHN SCH ×4 (02:02→21:09)
[2017-03-01] MEDS: SODIUM CHLORIDE 0.9% INJ 3ML FLUSH IVF SCH ×3 (06:00→21:21)
[2017-03-01] MEDS: AMLODIPINE 2.5MG TABLET PO SCH ×2 (06:39→17:34)
[2017-03-01] MEDS: BLOOD SUGAR DIAGNOSTIC STRIP TEST SCH ×4 (06:39→21:21)
[2017-03-01] MEDS: INSULIN LISPRO 100 UNITS/ML SUBCUT SCH ×4 (07:06→21:46)
[2017-03-01] MEDS: HYDROCODONE/ACETAMINOPHEN 5/325MG TABLET PO PRN ×2 (07:33→17:35)
[2017-03-01] MEDS: DOCUSATE SODIUM 250MG CAPSULE PO SCH ×2 (08:20→17:34)
[2017-03-01] MEDS: ASPIRIN 81MG EC TABLET PO SCH (08:20)
[2017-03-01] MEDS: ATENOLOL 25MG TABLET PO SCH (08:21)
[2017-03-01] MEDS: TAMSULOSIN HCL 0.4MG SR CAPSULE PO SCH (08:21)
[2017-03-01] MEDS: LOSARTAN POTASSIUM 100 MG TABLET PO SCH (08:21)
[2017-03-01] MEDS: CLOPIDOGREL 75MG TABLET PO SCH (08:21)
[2017-03-01] MEDS: FAMOTIDINE 20MG TABLET PO SCH ×2 (08:21→21:21)
[2017-03-01] MEDS: FERROUS SULFATE 325MG TABLET PO SCH (08:22)
[2017-03-01] MEDS: GUAIFENESIN 600MG ER TABLET PO SCH ×2 (08:22→21:20)
[2017-03-01] MEDS: POLYETHYLENE GLYCOL 3350 (17GM) 1 DOSE PACK PO SCH (08:25)
[2017-03-01 08:31] VITALS: BP 151/63
[2017-03-01] MEDS ORDERED: BISACODYL 10MG SUPP PR PRN (13:30)
[2017-03-01] MEDS ORDERED: NA PHOS,M-B/NA PHOS,DI-BA ENEMA 118ML PR SCH (13:30)
[2017-03-01] MEDS: LACTULOSE 20G/30ML UDC PO SCH ×3 (14:00→21:21)
[2017-03-01] MEDS: ENOXAPARIN 30MG/0.3ML SYR SUBCUT SCH (15:22)
[2017-03-01 20:00] VITALS: BP 131/56
[2017-03-01] MEDS: ATORVASTATIN CALCIUM 40MG TABLET PO SCH (21:20)
[2017-03-01] MEDS: INSULIN GLARGINE UD 100 UNITS/ML SYR SUBCUT SCH (21:46)
[2017-03-02] MEDS: IPRATROPIUM/ALBUTEROL 0.5-3(2.5)MG/3ML NEB HHN SCH ×4 (02:08→19:45)
[2017-03-02] MEDS: SODIUM CHLORIDE 0.9% INJ 3ML FLUSH IVF SCH ×3 (05:40→23:03)
[2017-03-02] MEDS: BLOOD SUGAR DIAGNOSTIC STRIP TEST SCH ×4 (05:40→20:25)
[2017-03-02] MEDS: INSULIN LISPRO 100 UNITS/ML SUBCUT SCH ×4 (05:40→23:02)
[2017-03-02] MEDS: AMLODIPINE 2.5MG TABLET PO SCH ×2 (05:50→19:02)
[2017-03-02] MEDS ORDERED: TEMAZEPAM 15MG CAPSULE PO PRN (06:00)
[2017-03-02 07:22] LABS: BASOPHILS % 0.5 % (0.0-2.0); EOSINOPHILS % 2.5 % (0.0-5.0); HEMATOCRIT. 28.4 % (42.0-52.0); HEMOGLOBIN. 9.5 g/dL (14.0-18.0); LYMPHOCYTES % 18.4 % (20.0-50.0); MEAN CORPUSCULAR HEMOGLOBIN 31.8 pg (28.0-32.0); MEAN CORPUSCULAR VOLUME 95.5 fL (80.0-94.0); MEAN PLATELET VOLUME 8.8 fl (7.4-10.4); MONOCYTES % 5.1 % (2.0-8.0); NEUTROPHILS % 73.5 % (40.0-76.0); PLATELET 282 x1000/uL (130-400); RED BLOOD CELL COUNT 2.98 mill/uL (4.7-6.1); RED CELL DISTRIBUTION WIDTH 13.7 % (11.6-14.6)
[2017-03-02 08:00] VITALS: BP 171/68
[2017-03-02] MEDS: POLYETHYLENE GLYCOL 3350 (17GM) 1 DOSE PACK PO SCH (08:08)
[2017-03-02] MEDS: FAMOTIDINE 20MG TABLET PO SCH (08:09)
[2017-03-02] MEDS: FERROUS SULFATE 325MG TABLET PO SCH (08:09)
[2017-03-02] MEDS: GUAIFENESIN 600MG ER TABLET PO SCH ×2 (08:09→20:25)
[2017-03-02] MEDS: ASPIRIN 81MG EC TABLET PO SCH (08:10)
[2017-03-02] MEDS: ATENOLOL 25MG TABLET PO SCH (08:10)
[2017-03-02] MEDS: LOSARTAN POTASSIUM 100 MG TABLET PO SCH (08:11)
[2017-03-02] MEDS: DOCUSATE SODIUM 250MG CAPSULE PO SCH ×2 (08:12→19:01)
[2017-03-02] MEDS: TAMSULOSIN HCL 0.4MG SR CAPSULE PO SCH (08:12)
[2017-03-02] MEDS: CLOPIDOGREL 75MG TABLET PO SCH (08:12)
[2017-03-02] MEDS: ENOXAPARIN 30MG/0.3ML SYR SUBCUT SCH (08:14)
[2017-03-02] MEDS: HYDROCODONE/ACETAMINOPHEN 5/325MG TABLET PO PRN ×2 (08:14→20:25)
[2017-03-02 08:39] LABS: PHOSPHORUS 3.5 mg/dL (2.5-4.9)
[2017-03-02] MEDS ORDERED: NA PHOS,M-B/NA PHOS,DI-BA ENEMA 118ML PR PRN (09:00)
[2017-03-02 09:14] LABS: FOLIC ACID (FOLATE) SERUM 9.1 ng/mL (>5.38)
[2017-03-02 20:00] VITALS: BP 147/63
[2017-03-02] MEDS: LACTULOSE 20G/30ML UDC PO SCH (20:24)
[2017-03-02] MEDS: ATORVASTATIN CALCIUM 40MG TABLET PO SCH (20:25)
[2017-03-02] MEDS: IRON SUCROSE COMPLEX 100 MG in SODIUM CHLORIDE 0.9% 100 ML IV SCH (22:50)
[2017-03-02] MEDS: INSULIN GLARGINE UD 100 UNITS/ML SYR SUBCUT SCH (23:02)
[2017-03-03] MEDS: IPRATROPIUM/ALBUTEROL 0.5-3(2.5)MG/3ML NEB HHN SCH ×4 (02:28→21:18)
[2017-03-03] MEDS: BLOOD SUGAR DIAGNOSTIC STRIP TEST SCH ×4 (06:00→21:41)
[2017-03-03] MEDS: SODIUM CHLORIDE 0.9% INJ 3ML FLUSH IVF SCH ×3 (06:00→21:42)
[2017-03-03] MEDS: INSULIN LISPRO 100 UNITS/ML SUBCUT SCH ×4 (06:00→21:00)
[2017-03-03] MEDS: AMLODIPINE 2.5MG TABLET PO SCH (06:00)
[2017-03-03 08:37] VITALS: BP 146/68
[2017-03-03] MEDS: POLYETHYLENE GLYCOL 3350 (17GM) 1 DOSE PACK PO SCH (09:28)
[2017-03-03] MEDS: DOCUSATE SODIUM 250MG CAPSULE PO SCH ×2 (09:29→17:21)
[2017-03-03] MEDS: ATENOLOL 25MG TABLET PO SCH (09:29)
[2017-03-03] MEDS: ASPIRIN 81MG EC TABLET PO SCH (09:29)
[2017-03-03] MEDS: LOSARTAN POTASSIUM 100 MG TABLET PO SCH (09:30)
[2017-03-03] MEDS: CLOPIDOGREL 75MG TABLET PO SCH (09:30)
[2017-03-03] MEDS: FAMOTIDINE 20MG TABLET PO SCH (09:30)
[2017-03-03] MEDS: TAMSULOSIN HCL 0.4MG SR CAPSULE PO SCH (09:31)
[2017-03-03] MEDS: GUAIFENESIN 600MG ER TABLET PO SCH ×2 (09:32→21:41)
[2017-03-03] MEDS: HYDROCODONE/ACETAMINOPHEN 5/325MG TABLET PO PRN (09:33)
[2017-03-03] MEDS: ENOXAPARIN 30MG/0.3ML SYR SUBCUT SCH (09:34)
[2017-03-03] MEDS: AMLODIPINE 5MG TABLET PO SCH (17:21)
[2017-03-03 20:10] VITALS: BP 154/68
[2017-03-03] MEDS: ATORVASTATIN CALCIUM 40MG TABLET PO SCH (21:40)
[2017-03-03] MEDS: IRON SUCROSE COMPLEX 100 MG in SODIUM CHLORIDE 0.9% 100 ML IV SCH (21:40)
[2017-03-03] MEDS: LACTULOSE 20G/30ML UDC PO SCH (21:41)
[2017-03-03] MEDS: INSULIN GLARGINE UD 100 UNITS/ML SYR SUBCUT SCH (21:58)
[2017-03-04] MEDS: IPRATROPIUM/ALBUTEROL 0.5-3(2.5)MG/3ML NEB HHN SCH ×4 (01:15→21:06)
[2017-03-04 06:39] LABS: BASOPHILS % 0.5 % (0.0-2.0); EOSINOPHILS % 4.2 % (0.0-5.0); HEMATOCRIT. 27.9 % (42.0-52.0); HEMOGLOBIN. 9.4 g/dL (14.0-18.0); LYMPHOCYTES % 23.3 % (20.0-50.0); MEAN CORPUSCULAR HEMOGLOBIN 31.8 pg (28.0-32.0); MEAN CORPUSCULAR VOLUME 94.8 fL (80.0-94.0); MEAN PLATELET VOLUME 8.6 fl (7.4-10.4); MONOCYTES % 6.2 % (2.0-8.0); NEUTROPHILS % 65.8 % (40.0-76.0); PLATELET 298 x1000/uL (130-400); RED BLOOD CELL COUNT 2.95 mill/uL (4.7-6.1); RED CELL DISTRIBUTION WIDTH 13.8 % (11.6-14.6)
[2017-03-04] MEDS: AMLODIPINE 5MG TABLET PO SCH ×2 (06:42→18:00)
[2017-03-04] MEDS: BLOOD SUGAR DIAGNOSTIC STRIP TEST SCH ×4 (06:43→21:00)
[2017-03-04] MEDS: SODIUM CHLORIDE 0.9% INJ 3ML FLUSH IVF SCH ×3 (06:43→22:16)
[2017-03-04] MEDS: INSULIN LISPRO 100 UNITS/ML SUBCUT SCH ×4 (07:44→22:15)
[2017-03-04 08:00] VITALS: BP 132/64
[2017-03-04] MEDS: FAMOTIDINE 20MG TABLET PO SCH (08:48)
[2017-03-04] MEDS: ASPIRIN 81MG EC TABLET PO SCH (08:48)
[2017-03-04] MEDS: ENOXAPARIN 30MG/0.3ML SYR SUBCUT SCH (08:48)
[2017-03-04] MEDS: TAMSULOSIN HCL 0.4MG SR CAPSULE PO SCH (08:49)
[2017-03-04] MEDS: GUAIFENESIN 600MG ER TABLET PO SCH ×2 (08:49→22:14)
[2017-03-04] MEDS: CLOPIDOGREL 75MG TABLET PO SCH (08:49)
[2017-03-04] MEDS: LOSARTAN POTASSIUM 100 MG TABLET PO SCH (08:51)
[2017-03-04] MEDS: ATENOLOL 25MG TABLET PO SCH (08:51)
[2017-03-04] MEDS: DOCUSATE SODIUM 250MG CAPSULE PO SCH ×2 (08:55→16:49)
[2017-03-04] MEDS: POLYETHYLENE GLYCOL 3350 (17GM) 1 DOSE PACK PO SCH (08:56)
[2017-03-04] MEDS: VITAMINS A AND D OINT TUBE TOP SCH (14:35)
[2017-03-04 20:00] VITALS: BP 147/64
[2017-03-04] MEDS: LACTULOSE 20G/30ML UDC PO SCH (21:00)
[2017-03-04] MEDS: INSULIN GLARGINE UD 100 UNITS/ML SYR SUBCUT SCH (22:00)
[2017-03-04] MEDS: ATORVASTATIN CALCIUM 40MG TABLET PO SCH (22:13)
[2017-03-04] MEDS: IRON SUCROSE COMPLEX 100 MG in SODIUM CHLORIDE 0.9% 100 ML IV SCH (22:15)
[2017-03-04] MEDS: HYDROCODONE/ACETAMINOPHEN 5/325MG TABLET PO PRN (22:15)
[2017-03-05] MEDS: IPRATROPIUM/ALBUTEROL 0.5-3(2.5)MG/3ML NEB HHN SCH ×4 (02:40→21:20)
[2017-03-05] MEDS: SODIUM CHLORIDE 0.9% INJ 3ML FLUSH IVF SCH ×3 (05:53→21:47)
[2017-03-05] MEDS: BLOOD SUGAR DIAGNOSTIC STRIP TEST SCH ×4 (05:53→21:46)
[2017-03-05] MEDS: AMLODIPINE 5MG TABLET PO SCH ×2 (05:53→18:05)
[2017-03-05] MEDS: INSULIN LISPRO 100 UNITS/ML SUBCUT SCH ×4 (05:53→21:47)
[2017-03-05 08:00] VITALS: BP 138/58
[2017-03-05] MEDS: GUAIFENESIN 600MG ER TABLET PO SCH ×2 (09:00→21:46)
[2017-03-05] MEDS: DOCUSATE SODIUM 250MG CAPSULE PO SCH ×2 (09:05→18:05)
[2017-03-05] MEDS: POLYETHYLENE GLYCOL 3350 (17GM) 1 DOSE PACK PO SCH (09:05)
[2017-03-05] MEDS: ATENOLOL 25MG TABLET PO SCH (09:07)
[2017-03-05] MEDS: CLOPIDOGREL 75MG TABLET PO SCH (09:07)
[2017-03-05] MEDS: TAMSULOSIN HCL 0.4MG SR CAPSULE PO SCH (09:08)
[2017-03-05] MEDS: LOSARTAN POTASSIUM 100 MG TABLET PO SCH (09:08)
[2017-03-05] MEDS: FAMOTIDINE 20MG TABLET PO SCH (09:08)
[2017-03-05] MEDS: ASPIRIN 81MG EC TABLET PO SCH (09:09)
[2017-03-05] MEDS: ENOXAPARIN 30MG/0.3ML SYR SUBCUT SCH (09:10)
[2017-03-05] MEDS: VITAMINS A AND D OINT TUBE TOP SCH (11:13)
[2017-03-05 20:00] VITALS: BP 147/66
[2017-03-05] MEDS: LACTULOSE 20G/30ML UDC PO SCH (21:00)
[2017-03-05] MEDS: BUDESONIDE 0.5MG/2ML NEB HHN SCH (21:19)
[2017-03-05] MEDS: IRON SUCROSE COMPLEX 100 MG in SODIUM CHLORIDE 0.9% 100 ML IV SCH (21:46)
[2017-03-05] MEDS: ATORVASTATIN CALCIUM 40MG TABLET PO SCH (21:46)
[2017-03-05] MEDS: INSULIN GLARGINE UD 100 UNITS/ML SYR SUBCUT SCH (21:47)
[2017-03-05] MEDS: HYDROCODONE/ACETAMINOPHEN 5/325MG TABLET PO PRN (22:23)
[2017-03-06] MEDS: IPRATROPIUM/ALBUTEROL 0.5-3(2.5)MG/3ML NEB HHN SCH ×4 (00:46→19:52)
[2017-03-06] MEDS: BUDESONIDE 0.5MG/2ML NEB HHN SCH ×3 (02:00→20:00)
[2017-03-06] MEDS: AMLODIPINE 5MG TABLET PO SCH ×2 (05:42→18:18)
[2017-03-06] MEDS: BLOOD SUGAR DIAGNOSTIC STRIP TEST SCH ×4 (05:42→21:47)
[2017-03-06] MEDS: SODIUM CHLORIDE 0.9% INJ 3ML FLUSH IVF SCH ×3 (05:42→21:47)
[2017-03-06] MEDS: ACETAMINOPHEN 650MG/20.3ML UDC PO PRN (05:43)
[2017-03-06] MEDS: INSULIN LISPRO 100 UNITS/ML SUBCUT SCH ×4 (05:44→21:49)
[2017-03-06 07:25] LABS: BASOPHILS % 0.6 % (0.0-2.0); EOSINOPHILS % 6.4 % (0.0-5.0); HEMATOCRIT. 26.5 % (42.0-52.0); HEMOGLOBIN. 8.9 g/dL (14.0-18.0); LYMPHOCYTES % 25.4 % (20.0-50.0); MEAN CORPUSCULAR HEMOGLOBIN 32.1 pg (28.0-32.0); MEAN PLATELET VOLUME 8.1 fl (7.4-10.4); MONOCYTES % 6.7 % (2.0-8.0); NEUTROPHILS % 60.9 % (40.0-76.0); PLATELET 280 x1000/uL (130-400); RED BLOOD CELL COUNT 2.76 mill/uL (4.7-6.1); RED CELL DISTRIBUTION WIDTH 13.5 % (11.6-14.6)
[2017-03-06 08:00] VITALS: BP 134/56
[2017-03-06] MEDS: CLOPIDOGREL 75MG TABLET PO SCH (08:43)
[2017-03-06] MEDS: GUAIFENESIN 600MG ER TABLET PO SCH ×2 (08:43→21:47)
[2017-03-06] MEDS: LOSARTAN POTASSIUM 100 MG TABLET PO SCH (08:43)
[2017-03-06] MEDS: DOCUSATE SODIUM 250MG CAPSULE PO SCH ×2 (08:43→18:16)
[2017-03-06] MEDS: ATENOLOL 25MG TABLET PO SCH (08:43)
[2017-03-06] MEDS: FAMOTIDINE 20MG TABLET PO SCH (08:44)
[2017-03-06] MEDS: ASPIRIN 81MG EC TABLET PO SCH (08:44)
[2017-03-06] MEDS: TAMSULOSIN HCL 0.4MG SR CAPSULE PO SCH (08:44)
[2017-03-06] MEDS: POLYETHYLENE GLYCOL 3350 (17GM) 1 DOSE PACK PO SCH (08:44)
[2017-03-06] MEDS: ENOXAPARIN 30MG/0.3ML SYR SUBCUT SCH (08:45)
[2017-03-06] MEDS: VITAMINS A AND D OINT TUBE TOP SCH (08:50)
[2017-03-06] MEDS: HYDROCODONE/ACETAMINOPHEN 5/325MG TABLET PO PRN (13:22)
[2017-03-06] MEDS: LACTULOSE 20G/30ML UDC PO SCH ×3 (18:16→21:46)
[2017-03-06 20:00] VITALS: BP 158/68
[2017-03-06] MEDS: ATORVASTATIN CALCIUM 40MG TABLET PO SCH (21:47)
[2017-03-06] MEDS: IRON SUCROSE COMPLEX 100 MG in SODIUM CHLORIDE 0.9% 100 ML IV SCH (21:47)
[2017-03-06] MEDS: INSULIN GLARGINE UD 100 UNITS/ML SYR SUBCUT SCH (21:50)
[2017-03-07] MEDS: IPRATROPIUM/ALBUTEROL 0.5-3(2.5)MG/3ML NEB HHN SCH ×4 (03:08→21:38)
[2017-03-07] MEDS: AMLODIPINE 5MG TABLET PO SCH ×2 (05:52→17:09)
[2017-03-07] MEDS: BLOOD SUGAR DIAGNOSTIC STRIP TEST SCH ×4 (05:52→21:26)
[2017-03-07] MEDS: INSULIN LISPRO 100 UNITS/ML SUBCUT SCH ×4 (05:52→21:28)
[2017-03-07] MEDS: SODIUM CHLORIDE 0.9% INJ 3ML FLUSH IVF SCH ×3 (06:01→21:27)
[2017-03-07] MEDS: BUDESONIDE 0.5MG/2ML NEB HHN SCH ×2 (07:29→21:38)
[2017-03-07 08:00] VITALS: BP 124/67
[2017-03-07] MEDS: ENOXAPARIN 30MG/0.3ML SYR SUBCUT SCH (08:13)
[2017-03-07] MEDS: POLYETHYLENE GLYCOL 3350 (17GM) 1 DOSE PACK PO SCH (08:13)
[2017-03-07] MEDS: TAMSULOSIN HCL 0.4MG SR CAPSULE PO SCH (08:14)
[2017-03-07] MEDS: CLOPIDOGREL 75MG TABLET PO SCH (08:14)
[2017-03-07] MEDS: ASPIRIN 81MG EC TABLET PO SCH (08:14)
[2017-03-07] MEDS: DOCUSATE SODIUM 250MG CAPSULE PO SCH ×2 (08:15→17:09)
[2017-03-07] MEDS: FAMOTIDINE 20MG TABLET PO SCH (08:15)
[2017-03-07] MEDS: GUAIFENESIN 600MG ER TABLET PO SCH ×2 (08:15→21:26)
[2017-03-07] MEDS: HYDROCODONE/ACETAMINOPHEN 5/325MG TABLET PO PRN (08:17)
[2017-03-07] MEDS: ATENOLOL 25MG TABLET PO SCH (09:00)
[2017-03-07] MEDS: LOSARTAN POTASSIUM 100 MG TABLET PO SCH (09:00)
[2017-03-07 10:45] VITALS: BP 108/60
[2017-03-07] MEDS: DUTASTERIDE 0.5MG CAPSULE PO SCH (10:47)
[2017-03-07] MEDS: VITAMINS A AND D OINT TUBE TOP SCH (10:47)
[2017-03-07 17:00] VITALS: BP 155/69
[2017-03-07] MEDS: ACETAMINOPHEN 650MG/20.3ML UDC PO PRN (19:53)
[2017-03-07] MEDS: ATORVASTATIN CALCIUM 40MG TABLET PO SCH (21:26)
[2017-03-07] MEDS: INSULIN GLARGINE UD 100 UNITS/ML SYR SUBCUT SCH (21:29)
[2017-03-07] MEDS: LACTULOSE 20G/30ML UDC PO SCH (21:29)
[2017-03-08] MEDS: HYDROCODONE/ACETAMINOPHEN 5/325MG TABLET PO PRN ×4 (00:19→22:35)
[2017-03-08] MEDS: IPRATROPIUM/ALBUTEROL 0.5-3(2.5)MG/3ML NEB HHN SCH ×4 (01:58→20:46)
[2017-03-08] MEDS: SODIUM CHLORIDE 0.9% INJ 3ML FLUSH IVF SCH ×3 (05:56→21:13)
[2017-03-08] MEDS: ACETAMINOPHEN 650MG/20.3ML UDC PO PRN (05:57)
[2017-03-08] MEDS: BLOOD SUGAR DIAGNOSTIC STRIP TEST SCH ×4 (05:57→21:13)
[2017-03-08] MEDS: AMLODIPINE 5MG TABLET PO SCH ×2 (05:57→21:13)
[2017-03-08] MEDS: INSULIN LISPRO 100 UNITS/ML SUBCUT SCH ×4 (07:28→22:34)
[2017-03-08 08:00] VITALS: BP 145/70
[2017-03-08] MEDS: DUTASTERIDE 0.5MG CAPSULE PO SCH (08:49)
[2017-03-08] MEDS: DOCUSATE SODIUM 250MG CAPSULE PO SCH ×2 (08:49→17:51)
[2017-03-08] MEDS: TAMSULOSIN HCL 0.4MG SR CAPSULE PO SCH (08:49)
[2017-03-08] MEDS: POLYETHYLENE GLYCOL 3350 (17GM) 1 DOSE PACK PO SCH (08:50)
[2017-03-08] MEDS: ATENOLOL 25MG TABLET PO SCH (08:50)
[2017-03-08] MEDS: CLOPIDOGREL 75MG TABLET PO SCH (08:50)
[2017-03-08] MEDS: LOSARTAN POTASSIUM 100 MG TABLET PO SCH (08:50)
[2017-03-08] MEDS: ENOXAPARIN 30MG/0.3ML SYR SUBCUT SCH (08:50)
[2017-03-08] MEDS: ASPIRIN 81MG EC TABLET PO SCH (08:50)
[2017-03-08] MEDS: GUAIFENESIN 600MG ER TABLET PO SCH ×2 (08:50→21:12)
[2017-03-08] MEDS: FAMOTIDINE 20MG TABLET PO SCH (08:50)
[2017-03-08] MEDS: VITAMINS A AND D OINT TUBE TOP SCH (08:51)
[2017-03-08 09:11] LABS: 25-HYDROXY VITAMIN D3 7.6 ng/mL (.)
[2017-03-08] MEDS: BUDESONIDE 0.5MG/2ML NEB HHN SCH (10:40)
[2017-03-08 20:00] VITALS: BP 141/63
[2017-03-08] MEDS ORDERED: ERGOCALCIFEROL 50000UNITS CAPSULE PO SCH (21:00)
[2017-03-08] MEDS: ATORVASTATIN CALCIUM 40MG TABLET PO SCH (21:12)
[2017-03-08] MEDS: LACTULOSE 20G/30ML UDC PO SCH (21:15)
[2017-03-08] MEDS: INSULIN GLARGINE UD 100 UNITS/ML SYR SUBCUT SCH (22:33)
[2017-03-09] MEDS: IPRATROPIUM/ALBUTEROL 0.5-3(2.5)MG/3ML NEB HHN SCH ×4 (01:01→21:43)
[2017-03-09] MEDS: INSULIN LISPRO 100 UNITS/ML SUBCUT SCH ×4 (05:31→20:47)
[2017-03-09] MEDS: BLOOD SUGAR DIAGNOSTIC STRIP TEST SCH ×4 (05:31→20:40)
[2017-03-09] MEDS: SODIUM CHLORIDE 0.9% INJ 3ML FLUSH IVF SCH ×3 (05:31→20:44)
[2017-03-09] MEDS: AMLODIPINE 5MG TABLET PO SCH ×2 (05:35→17:31)
[2017-03-09 07:23] LABS: BASOPHILS % 0.5 % (0.0-2.0); HEMATOCRIT. 28.2 % (42.0-52.0); HEMOGLOBIN. 9.4 g/dL (14.0-18.0); LYMPHOCYTES % 29.7 % (20.0-50.0); MEAN CORPUSCULAR VOLUME 96.4 fL (80.0-94.0); MONOCYTES % 6.1 % (2.0-8.0); NEUTROPHILS % 58.7 % (40.0-76.0); PLATELET 305 x1000/uL (130-400); RED BLOOD CELL COUNT 2.93 mill/uL (4.7-6.1)
[2017-03-09 08:00] VITALS: BP 129/75
[2017-03-09] MEDS: ENOXAPARIN 30MG/0.3ML SYR SUBCUT SCH (08:44)
[2017-03-09] MEDS: FAMOTIDINE 20MG TABLET PO SCH (08:44)
[2017-03-09] MEDS: DOCUSATE SODIUM 250MG CAPSULE PO SCH ×2 (08:45→16:48)
[2017-03-09] MEDS: ASPIRIN 81MG EC TABLET PO SCH (08:45)
[2017-03-09] MEDS: CLOPIDOGREL 75MG TABLET PO SCH (08:45)
[2017-03-09] MEDS: TAMSULOSIN HCL 0.4MG SR CAPSULE PO SCH (08:46)
[2017-03-09] MEDS: LOSARTAN POTASSIUM 100 MG TABLET PO SCH (08:47)
[2017-03-09] MEDS: ATENOLOL 25MG TABLET PO SCH (08:47)
[2017-03-09] MEDS: GUAIFENESIN 600MG ER TABLET PO SCH ×2 (08:48→20:40)
[2017-03-09] MEDS: POLYETHYLENE GLYCOL 3350 (17GM) 1 DOSE PACK PO SCH (08:48)
[2017-03-09] MEDS: VITAMINS A AND D OINT TUBE TOP SCH (08:51)
[2017-03-09] MEDS: DUTASTERIDE 0.5MG CAPSULE PO SCH (08:51)
[2017-03-09 20:00] VITALS: BP 156/60
[2017-03-09] MEDS: ATORVASTATIN CALCIUM 40MG TABLET PO SCH (20:40)
[2017-03-09] MEDS: LACTULOSE 20G/30ML UDC PO SCH (20:40)
[2017-03-09] MEDS: INSULIN GLARGINE UD 100 UNITS/ML SYR SUBCUT SCH (21:51)
[2017-03-09] MEDS: HYDROCODONE/ACETAMINOPHEN 5/325MG TABLET PO PRN (23:43)
[2017-03-10] MEDS: IPRATROPIUM/ALBUTEROL 0.5-3(2.5)MG/3ML NEB HHN SCH ×4 (01:57→21:03)
[2017-03-10] MEDS: SODIUM CHLORIDE 0.9% INJ 3ML FLUSH IVF SCH ×3 (05:42→21:09)
[2017-03-10] MEDS: INSULIN LISPRO 100 UNITS/ML SUBCUT SCH ×4 (05:42→21:00)
[2017-03-10] MEDS: BLOOD SUGAR DIAGNOSTIC STRIP TEST SCH ×4 (05:42→21:12)
[2017-03-10] MEDS: AMLODIPINE 5MG TABLET PO SCH ×2 (05:47→17:03)
[2017-03-10] MEDS: POLYETHYLENE GLYCOL 3350 (17GM) 1 DOSE PACK PO SCH (08:14)
[2017-03-10] MEDS: VITAMINS A AND D OINT TUBE TOP SCH (08:21)
[2017-03-10] MEDS: GUAIFENESIN 600MG ER TABLET PO SCH ×2 (08:22→21:09)
[2017-03-10] MEDS: ENOXAPARIN 30MG/0.3ML SYR SUBCUT SCH (08:22)
[2017-03-10] MEDS: LOSARTAN POTASSIUM 100 MG TABLET PO SCH (08:23)
[2017-03-10] MEDS: DOCUSATE SODIUM 250MG CAPSULE PO SCH ×2 (08:23→17:03)
[2017-03-10] MEDS: CLOPIDOGREL 75MG TABLET PO SCH (08:23)
[2017-03-10] MEDS: FAMOTIDINE 20MG TABLET PO SCH (08:24)
[2017-03-10] MEDS: DUTASTERIDE 0.5MG CAPSULE PO SCH (08:24)
[2017-03-10] MEDS: ASPIRIN 81MG EC TABLET PO SCH (08:24)
[2017-03-10] MEDS: TAMSULOSIN HCL 0.4MG SR CAPSULE PO SCH (08:25)
[2017-03-10] MEDS: ATENOLOL 25MG TABLET PO SCH (08:25)
[2017-03-10] MEDS: HYDROCODONE/ACETAMINOPHEN 5/325MG TABLET PO PRN (17:40)
[2017-03-10] MEDS ORDERED: HYDROCODONE/ACETAMINOPHEN 5/325MG TABLET PO PRN (19:00)
[2017-03-10 20:00] VITALS: BP 150/66
[2017-03-10] MEDS: ATORVASTATIN CALCIUM 40MG TABLET PO SCH (21:09)
[2017-03-10] MEDS: LACTULOSE 20G/30ML UDC PO SCH (21:09)
[2017-03-10] MEDS: INSULIN GLARGINE UD 100 UNITS/ML SYR SUBCUT SCH (21:16)
[2017-03-11] MEDS: IPRATROPIUM/ALBUTEROL 0.5-3(2.5)MG/3ML NEB HHN SCH ×3 (01:43→13:50)
[2017-03-11] MEDS: SODIUM CHLORIDE 0.9% INJ 3ML FLUSH IVF SCH (05:42)
[2017-03-11] MEDS: AMLODIPINE 5MG TABLET PO SCH (05:42)
[2017-03-11] MEDS: BLOOD SUGAR DIAGNOSTIC STRIP TEST SCH ×2 (05:45→12:06)
[2017-03-11] MEDS: INSULIN LISPRO 100 UNITS/ML SUBCUT SCH ×2 (06:51→13:00)
[2017-03-11] MEDS: CLOPIDOGREL 75MG TABLET PO SCH (08:16)
[2017-03-11] MEDS: POLYETHYLENE GLYCOL 3350 (17GM) 1 DOSE PACK PO SCH (08:16)
[2017-03-11] MEDS: ENOXAPARIN 30MG/0.3ML SYR SUBCUT SCH (08:16)
[2017-03-11] MEDS: DOCUSATE SODIUM 250MG CAPSULE PO SCH (08:16)
[2017-03-11] MEDS: ASPIRIN 81MG EC TABLET PO SCH (08:17)
[2017-03-11] MEDS: LOSARTAN POTASSIUM 100 MG TABLET PO SCH (08:17)
[2017-03-11] MEDS: TAMSULOSIN HCL 0.4MG SR CAPSULE PO SCH (08:17)
[2017-03-11] MEDS: DUTASTERIDE 0.5MG CAPSULE PO SCH (08:17)
[2017-03-11] MEDS: GUAIFENESIN 600MG ER TABLET PO SCH (08:17)
[2017-03-11] MEDS: ATENOLOL 25MG TABLET PO SCH (08:17)
[2017-03-11] MEDS: FAMOTIDINE 20MG TABLET PO SCH (08:18)
[2017-03-11 08:55] VITALS: BP 154/71
[2017-03-11] MEDS: VITAMINS A AND D OINT TUBE TOP SCH (09:00)
[2017-03-11] MEDS ORDERED: MICONAZOLE NITRATE 2% OINT 71GM TOP SCH (11:15)
[2017-03-11 12:57] VITALS: BP 154/71
== END 2017-03-11 14:30 | disposition home health service (06) | DRG 535 ==
PROVIDERS: ADMIT Physical Medicine & Rehabilitation Spinal Cord Injury Medicine; ATTEND Internal Medicine
DX: S72.012A Unspecified intracapsular fracture of left femur, initial encounter for closed fracture (principal); G93.40 Encephalopathy, unspecified; E43 Unspecified severe protein-calorie malnutrition; E11.22 Type 2 diabetes mellitus with diabetic chronic kidney disease; K92.2 Gastrointestinal hemorrhage, unspecified; L89.899 Pressure ulcer of other site, unspecified stage; E11.42 Type 2 diabetes mellitus with diabetic polyneuropathy; E11.51 Type 2 diabetes mellitus with diabetic peripheral angiopathy without gangrene; E11.40 Type 2 diabetes mellitus with diabetic neuropathy, unspecified; I25.10 Atherosclerotic heart disease of native coronary artery without angina pectoris; I11.9 Hypertensive heart disease without heart failure; G89.4 Chronic pain syndrome; E78.00 Pure hypercholesterolemia, unspecified; D64.9 Anemia, unspecified; W18.30XA Fall on same level, unspecified, initial encounter; R33.8 Other retention of urine; N40.1 Benign prostatic hyperplasia with lower urinary tract symptoms; N18.9 Chronic kidney disease, unspecified; R26.9 Unspecified abnormalities of gait and mobility; L60.3 Nail dystrophy; I13.10 Hypertensive heart and chronic kidney disease without heart failure, with stage 1 through stage 4 chronic kidney disease, or unspecified chronic kidney disease; F32.9 Major depressive disorder, single episode, unspecified; F17.200 Nicotine dependence, unspecified, uncomplicated; F06.31 Mood disorder due to known physiological condition with depressive features; E78.5 Hyperlipidemia, unspecified; F06.8 Other specified mental disorders due to known physiological condition; E61.1 Iron deficiency; E55.9 Vitamin D deficiency, unspecified; D72.829 Elevated white blood cell count, unspecified; Z85.51 Personal history of malignant neoplasm of bladder; Z89.411 Acquired absence of right great toe; Z86.73 Personal history of transient ischemic attack (TIA), and cerebral infarction without residual deficits; Z87.11 Personal history of peptic ulcer disease; Z87.01 Personal history of pneumonia (recurrent); Z83.3 Family history of diabetes mellitus; Z79.4 Long term (current) use of insulin; I25.2 Old myocardial infarction; Z79.899 Other long term (current) drug therapy; Z68.24 Body mass index [BMI] 24.0-24.9, adult
CPT/HCPCS: 36415; 72192; 73502; 80048; 80053; 81001; 82306; 82607; 82728; 82746; 82962; 83540; 83550; 83735; 84100; 84134; 84153; 84443; 84630; 85025; 85027; 87086; 88108; 92523; 92610; 93005; 93923; 94640; 94664; 97110; 97112; 97116; 97127; 97163; 97167; 97530; 97535; 97542; A6261; J1650; J1815; J7040; J7050; J7620; J7626; A4315; A5200